=== PATIENT | female | born 1965 | race Caucasian/White ===

== ENCOUNTER 2018-11-27 11:39 | Emergency (ER) | payer OTHER ==
[~2018-11-27] VITALS: Ht 170.2 cm; Wt 68.0 kg
[2018-11-27] MEDS ORDERED: ATIVAN0.5 MG PO (11:52)
[2018-11-27] MEDS ORDERED: MINIPRESS2 MG PO (11:52)
[2018-11-27] MEDS ORDERED: VITAMIN E400 UNI1 PO (11:52)
[2018-11-27] MEDS ORDERED: CYCLOBENZAPRINE10 MG PO (11:53)
[2018-11-27] MEDS ORDERED: ATIVAN1 MG PO (13:37)
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
== END 2018-11-27 13:48 | disposition home or self-care (01) ==
LOC: ED 11:39
DX: F41.9 Anxiety disorder, unspecified (principal); F43.10 Post-traumatic stress disorder, unspecified; Z87.442 Personal history of urinary calculi; Z90.710 Acquired absence of both cervix and uterus; Z88.1 Allergy status to other antibiotic agents
CPT/HCPCS: 99283